=== PATIENT | female | born 2000 | race Caucasian/White ===

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

== ENCOUNTER 2021-12-02 13:37 | Emergency (ER) | payer OTHER ==
[~2021-12-02] VITALS: Ht 154.9 cm; Wt 79.4 kg
[~2021-12-02 13:37] MED LIST: PEPCID AC20 MG PO; PREVACID15 MG PO
== END 2021-12-02 17:02 | disposition home or self-care (01) ==
LOC: ER 13:37
DX: J40 Bronchitis, not specified as acute or chronic (principal); B34.9 Viral infection, unspecified; Z20.822 Contact with and (suspected) exposure to COVID-19